=== PATIENT | male | born 1965 ===

== ENCOUNTER 2017-12-30 06:06 | Inpatient (IN) | payer BC ==
[2017-12-23 11:30] VITALS: BMI 29.2
[2017-12-30] MEDS ORDERED: Lactated Ringer's 1,000 ML IV ONE ×3 (06:55→09:00)
[2017-12-30] MEDS ORDERED: ePHEDrine 50 mg/ml Inj ONE (07:06)
[2017-12-30] MEDS ORDERED: Midazolam 2 MG/2 ML VIAL ONE (07:06)
[2017-12-30] MEDS ORDERED: Propofol 10 mg/ml Inj (20 ML) ONE ×2 (07:06→11:33)
[2017-12-30] MEDS ORDERED: Succinylcholine 200 mg/10 ml Inj IV ONE (07:07)
[2017-12-30] MEDS ORDERED: Rocuronium 10 mg/ml (5 ml) ONE ×2 (07:07→08:14)
[2017-12-30] MEDS ORDERED: Phenylephrine 10 mg/ml Inj ONE ×2 (07:07→07:17)
[2017-12-30 07:11] LABS: BASO % 1.2 % (0.0-2.0); EOS # 0.1 K/uL (0.0-0.7); EOS % 2.4 % (0.0-4.0); HEMOGLOBIN 13.3 g/dL (12.0-18.0); LYMPH # 1.2 K/uL (1.0-4.3); LYMPH % 48.8 % (20.0-40.0); MEAN CELL VOLUME 82.5 fl (80.0-94.0); MEAN CORPUSCULAR HEMOGLOBIN 28.7 pg (27.0-31.0); MEAN CORPUSCULAR HGB CONC 34.8 g/dL (33.0-37.0); MEAN PLATELET VOLUME 8.1 fl (7.2-11.7); MONO # 0.3 K/uL (0.0-0.8); MONO % 10.9 % (0.0-10.0); NEUT # 0.9 K/uL (1.8-7.0); NEUT % 36.7 % (50.0-75.0); NRBC % 0.3 % (0.0-0.0); RBC 4.62 Mil/uL (4.40-5.90); RED CELL DISTRIBUTION WIDTH 14.4 % (11.5-14.5); WHITE BLOOD COUNT 2.4 K/uL (4.8-10.8)
[2017-12-30] MEDS ORDERED: Bupivacaine HCl 0.5% PF (30 ml) Inj ONE (07:22)
[2017-12-30] MEDS ORDERED: Esmolol 100 mg/10ml Inj IV ONE (07:43)
[2017-12-30] MEDS ORDERED: Neostigmine 1:1000 (1 mg/ml) Inj ONE (07:47)
[2017-12-30] MEDS ORDERED: Sodium Chloride 0.9% 1,000 ML IV ONE ×2 (07:55→10:00)
[2017-12-30] MEDS ORDERED: cefOXitin IV 1 gm in Dextrose 1 GM/50 ML BAG IVPB ONE (08:07)
[2017-12-30] MEDS ORDERED: Morphine 1 mg/ml preservative-free Inj(Duramorph) ONE (08:14)
--- NOTE | 2017-12-30 12:13 | PCM.SURG1 ---
Surgeon's Initial Post Op Note - Surgeon's Notes Surgeon: Casimiro Putty Worker: Scar AHUMADA, Abena AHUMADA, PGY4, [place] PGY4 Type of Anesthesia: General Endo, Local Pre-Operative Diagnosis: rectosigmoid colon cancer Operative Findings: rectosigmoid colon mass Post-Operative Diagnosis: rectosigmoid colon cancer Operation Performed: Robotic assisted rectosigmoidoscopy, rigid rectosigmoidoscopy, cystoscopy with b/l ureteral dye injection Specimen/Specimens Removed: rectosigmoid colon Estimated Blood Loss: EBL {In ML}: 50 Blood Products Given: N/A Drains Used: No Drains Post-Op Condition: Good Date of Surgery/Procedure: 12/30/17 Time of Surgery/Procedure: 08:00
[2017-12-30] MEDS ORDERED: HYDROmorphone 1 mg/ml ISec ONE ×2 (12:44→13:09)
[2017-12-30] MEDS: HYDROmorphone 1 mg/ml ISec IVP PRN ×5 (12:45→23:09)
--- NOTE | 2017-12-30 14:40 | PCM.OP ---
Operative Report - Operative Report Date of Surgery/Procedure: 12/30/17 Time of Surgery/Procedure: 07:30 Surgeon: Dr. Jorge L Kirkpatrick Chief Underwriter: Dr. Mukesh Abbott and Dr. Kraft Anesthesia/Sedation: general/Dr. Mace Pre-Operative Diagnosis: colon cancer (rectosigmoid colon) Post-Operative Diagnosis: same Indication for Surgery: as above Operative Findings: rectosigmoid colon cancer Procedure/Operation Description: 1-Roboptic low anterior resection of the rectosigmoid colon with takedown of the splenic flexure. 3-Syfp-[id number]. 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 Description of the Procedure: The patient was taken to the operating room and after induction of endotracheal anesthesia he was prepped and drapped in the usual sterile manner. An infraumbilical incision was made and a Mcghee trocar was placed with ease. Pneumoperitoneum was achieved and the colon was examined where no tattoo was noted. Rigis recto-simoidoscopy was perfromed in the usual fashion and the lesion was identified both with the endoscope and through the videoscope. The remainder of the trocars were placed in the usual fashion. The left colon was then mobilized with blunt and sharp dissection with the aid of electrocautery to the level of the splenic flexure. The peritoneal reflection was opened using a similar technique with now the colon completely mobilized. The mesentery was dissected using bkunt and sharp technique. The inferior colic artery was dissected and triple clipped and then transected. The mesenetery was dessicted and the specimen was now completely detached. The colon reached the rectum without any tesnsion. The EEA sizers were used and a 29 mm stapler was introduced in a ahnd assisted fashion, appropriately placed and fired. The douognuts were examined and were completely intact. The anastomosis was filled with air and the anastomosis was deemed adeqaute. Hemostasis was deeemed adeqaute. The umbilical incision was extended and the specimen ws removed. All counts were correct. Trocars were removed and the umbilical incision was closed with 2-0 PDS. $-0 monocryl for the remainder of the trocar sites. A clean dressing was applied. The patient was awakened, extubated and brought to the PACU in stable condition. Estimated Blood Loss: 50 cc Blood Replaced: 2700 cc crystalloids Complications: none Specimen: rectosigmoid colon Discharge & Condition: stable
[2017-12-30] MEDS: cefOXitin IV 1 gm in Dextrose 1 GM/50 ML BAG IVPB SCH ×2 (16:25→21:20)
[2017-12-30] MEDS: Dextrose 5%/0.45% NS 1,000 ML IV SCH (16:28)
--- NOTE | 2017-12-30 21:04 | OP ---
Copied To: Catarino Kraft M.D. Attending MD: Catarino Kraft MD PROCEDURE DATE: 12/30/2017 PREOPERATIVE DIAGNOSIS: Rectal cancer. POSTOPERATIVE DIAGNOSIS: Rectal cancer. PROCEDURES: 1. Cystoscopy. 2. Bilateral retrograde pyelogram with installation of indocyanine green. 3. Exploratory laparoscopy with identification of bilateral ureters. SURGEON: Catarino Kraft MD INDICATION: This is a 52-year-old gentleman undergoing an LAR by the general surgeons. I was asked intraoperatively to come into the operating room to perform cystoscopy and instill retrograde ICG green in to bilateral ureters for identification intraoperatively. In addition, a diagnostic laparoscopy was performed at which time bilateral ureters were identified to aid the general surgeons in identifying their anatomic landmarks. This dictation pertains only to the urology portion of the surgery. The rest of the dictation will be dictated separately by the surgery team. DESCRIPTION OF PROCEDURE: When I came in to the room, the patient was already prepped and draped in the usual sterile fashion. He was already in lithotomy position. A time-out had already been called. At this point, a 19-[place]ayan cystoscope was introduced into the penis. Cystourethroscopy was performed. The urethra appeared grossly normal. The prostatic urethra also appeared grossly normal with slight hypertrophy of the lateral lobes. Once within the bladder, cystoscopy was performed which revealed a normal appearing bladder with no tumors or stones noted. Bilateral ureteral orifices were identified and noted to be in the normal orthotopic position. At this point, a 5-[place] whistle tip catheter was advanced gently into the left ureteral orifice and advanced proximally 15 cm. 5 mL of indocyanine green was then injected in a retrograde fashion into the left renal collecting system. After this was performed, the 5-[place] whistle tip catheter was removed from the left ureter. The right ureter was then identified and the whistle tip catheter was then advanced into the right ureter and advanced approximately 15 cm in distance. An additional 5 mL of indocyanine green was then injected in an retrograde fashion to the right renal collecting system. A 5-[place] open-ended catheter was then removed. The cystoscope was then removed. A 16-[place] Mckinley catheter was then advanced into the penis. The catheter was advanced until spontaneous return of urine was noted. The balloon was then injected with 10 mL of water. The general surgeons then proceeded to perform their part of the surgery. They obtained pneumoperitoneum and placed the trocars. The robot was then docked. With the laparoscope in the abdomen, the Firefly function on the robotic exercise system was turned on. With the aid of the Firefly and indocyanine green, bilateral ureters were easily identifiable as they were fluorescent green. Thus, the bilateral ureters were identified and aided the surgeons in identifying the anatomic landmarks. The rest of the surgery was performed by the general surgeons. They will dictate this separately. Catarino Kraft M.D.
[2017-12-30] MEDS ORDERED: HYDROmorphone 0.5 mg/0.5 ml ISec IVP PRN (23:00)
[2017-12-31] MEDS: Dextrose 5%/0.45% NS 1,000 ML IV SCH ×2 (02:17→09:22)
[2017-12-31] MEDS: cefOXitin IV 1 gm in Dextrose 1 GM/50 ML BAG IVPB SCH ×3 (04:57→17:57)
[2017-12-31] MEDS ORDERED: HYDROmorphone 1 mg/ml ISec IVP PRN ×2 (05:00→07:56)
[2017-12-31 05:29] LABS: HEMOGLOBIN 12.4 g/dL (12.0-18.0); MEAN CELL VOLUME 84.3 fl (80.0-94.0); MEAN CORPUSCULAR HEMOGLOBIN 28.5 pg (27.0-31.0); MEAN CORPUSCULAR HGB CONC 33.8 g/dL (33.0-37.0); RBC 4.35 Mil/uL (4.40-5.90); RED CELL DISTRIBUTION WIDTH 14.8 % (11.5-14.5); WHITE BLOOD COUNT 9.4 K/uL (4.8-10.8)
[2017-12-31 05:57] LABS: ALB/GLOB RATIO 1.2 (1.0-2.1); ALBUMIN 3.8 g/dL (3.5-5.0); ALT/SGPT 25 U/L (21-72); AST/SGOT 31 U/L (17-59); BLOOD UREA NITROGEN 9 mg/dl (9-20); CALCIUM 8.6 mg/dL (8.4-10.2); GFR NON-AFRICAN AMERICAN > 60
[2017-12-31] MEDS: Levothyroxine 75 MCG TAB PO SCH (06:05)
[2017-12-31] MEDS: Enoxaparin 40 mg Syringe SC SCH (08:00)
--- NOTE | 2017-12-31 08:03 | CP.PCM.PN ---
Subjective - Date & Time of Evaluation Date of Evaluation: 12/31/17 Time of Evaluation: 07:20 - Subjective Subjective: General Surgery Dr. Kirkpatrick Pt S&E @bedside. Pt underwent robotic rectosigmoidectomy yesterday. Pt tolerated the procedure well w/ no complications. NAEO. pt c/o abd pain only minimally controlled w/ meds as well as distention. denies F/C, N/V. has not yet been OOB. (-)Flatus/BM. Objective - Vital Signs/Intake and Output Vital Signs (last 24 hours): Temp Pulse Resp BP Pulse Ox 98 F 77 18 119/83 100 12/31/17 07:55 12/31/17 07:55 12/31/17 07:55 12/31/17 07:55 12/31/17 07:55 Intake and Output: 12/31/17 12/31/17 06:59 18:59 Intake Total 1300 1700 Output Total 350 775 Balance 950 925 - Medications Medications: Current Medications Cyclobenzaprine HCl (Flexeril) 5 mg PO TID PRN PRN Reason: Muscle spasm Enoxaparin Sodium (Lovenox) 40 mg SC DAILY [facility] PRN Reason: Protocol Hydromorphone HCl (Dilaudid) 1 mg IVP Q4 PRN PRN Reason: Pain, moderate (4-7) Hydromorphone HCl (Dilaudid) 0.5 mg IVP Q3H PRN PRN Reason: breakthrough pain Acetaminophen (Ofirmev) 1,000 mg in 100 mls @ 400 mls/hr IVPB Q6H [facility] PRN Reason: Protocol Stop: 01/01/18 12:01 Last Admin: 12/31/17 06:00 Dose: 400 mls/hr Dextrose/Sodium Chloride (Dextrose 5%/0.45% Ns 1000 Ml) 1,000 mls @ 125 mls/hr IV .Q8H [facility] Last Admin: 12/31/17 02:17 Dose: 125 mls/hr Cefoxitin Sodium (Mefoxin Iv 1 Gm Duplex) 1 gm in 50 mls @ 50 mls/hr IVPB Q6 [facility] PRN Reason: Protocol Stop: 12/31/17 16:01 Last Admin: 12/31/17 04:57 Dose: 50 mls/hr Levothyroxine Sodium (Synthroid) 75 mcg PO DAILY@0630 [facility] Last Admin: 12/31/17 06:05 Dose: 75 mcg Metoclopramide HCl (Reglan) 10 mg IVP Q8 [facility] Ondansetron HCl (Zofran Inj) 4 mg IVP Q6 PRN PRN Reason: Nausea/Vomiting - Labs Labs: 12/31/17 05:22 12/31/17 05:22 - Constitutional Appears: Non-toxic, No Acute Distress - Head Exam Head Exam: NORMAL INSPECTION - Eye Exam Eye Exam: Normal appearance - ENT Exam ENT Exam: Mucous Membranes Moist - Respiratory Exam Respiratory Exam: NORMAL BREATHING PATTERN. absent: Accessory Muscle Use, Respiratory Distress - Cardiovascular Exam Cardiovascular Exam: REGULAR RHYTHM. absent: Bradycardia, Tachycardia - GI/Abdominal Exam GI & Abdominal Exam: Distended (mild), Guarding (voluntary), Soft, Tenderness ( TTP LLQ). absent: Firm, Rigid, Rebound Additional comments: dressings c/d/i - Extremities Exam Extremities Exam: Normal Inspection - Neurological Exam Neurological Exam: Alert, Awake, Oriented x3 - Psychiatric Exam Psychiatric exam: Normal Affect, Normal Mood - Skin Skin Exam: Dry, Intact, Normal Color, Warm Assessment and Plan - Assessment and Plan (Free Text) Assessment: 52 y/o M w/ colon ca POD#1 s/p robotic rectosigmoidectomy - maintain NPO/IVF - adjusted pain regimen - Reglan for distention/GI motility - Abx to finish today - PT/OT - encourage OOB to chair/Amb/IS use - DVT PPx Pt discussed w/ Dr. Casimiro Goldberg DO PGY3
[2017-12-31] MEDS: HYDROmorphone 1 mg/ml ISec IVP PRN ×2 (09:17→13:36)
[2018-01-01] MEDS: Levothyroxine 75 MCG TAB PO SCH (06:36)
[2018-01-01] MEDS: Dextrose 5%/0.45% NS 1,000 ML IV SCH ×2 (06:36→10:39)
[2018-01-01 07:06] LABS: HEMOGLOBIN 11.9 g/dL (12.0-18.0); MEAN CELL VOLUME 82.7 fl (80.0-94.0); MEAN CORPUSCULAR HEMOGLOBIN 28.5 pg (27.0-31.0); MEAN CORPUSCULAR HGB CONC 34.5 g/dL (33.0-37.0); RBC 4.16 Mil/uL (4.40-5.90); RED CELL DISTRIBUTION WIDTH 14.8 % (11.5-14.5); WHITE BLOOD COUNT 8.8 K/uL (4.8-10.8)
[2018-01-01 07:14] LABS: BLOOD UREA NITROGEN 7 mg/dl (9-20); GFR NON-AFRICAN AMERICAN > 60
--- NOTE | 2018-01-01 08:13 | CP.PCM.PN ---
Subjective - Date & Time of Evaluation Date of Evaluation: 01/01/18 Time of Evaluation: 08:09 - Subjective Subjective: General surgery - Dr. Kirkpatrick Pt S&E. Overnight pt had episodes of nausea. His pain is well controlled with current regimen. He has been OOB and ambulating. He is passing small amount of flatus and belching. He denies any vomiting, fevers/chills, chest pain. Mckinley catheter had ~2000cc blood-tinged urine output past 24hrs. Objective - Vital Signs/Intake and Output Vital Signs (last 24 hours): Temp Pulse Resp BP Pulse Ox 98.5 F 77 18 135/71 97 01/01/18 05:00 01/01/18 05:00 01/01/18 05:00 01/01/18 05:00 01/01/18 05:00 - Medications Medications: Current Medications Cyclobenzaprine HCl (Flexeril) 5 mg PO TID PRN PRN Reason: Muscle spasm Last Admin: 12/31/17 07:58 Dose: 5 mg Enoxaparin Sodium (Lovenox) 40 mg SC DAILY [facility] PRN Reason: Protocol Last Admin: 12/31/17 08:00 Dose: 40 mg Acetaminophen (Ofirmev) 1,000 mg in 100 mls @ 400 mls/hr IVPB Q6H [facility] PRN Reason: Protocol Stop: 01/01/18 12:01 Last Admin: 01/01/18 06:34 Dose: 400 mls/hr Dextrose/Sodium Chloride (Dextrose 5%/0.45% Ns 1000 Ml) 1,000 mls @ 125 mls/hr IV .Q8H [facility] Last Admin: 01/01/18 06:36 Dose: 125 mls/hr Ketorolac Tromethamine (Toradol) 30 mg IVP Q6 [facility] Last Admin: 01/01/18 03:19 Dose: 30 mg Levothyroxine Sodium (Synthroid) 75 mcg PO DAILY@0630 [facility] Last Admin: 01/01/18 06:36 Dose: 75 mcg Metoclopramide HCl (Reglan) 10 mg IVP Q8 [facility] Last Admin: 01/01/18 01:54 Dose: 10 mg Ondansetron HCl (Zofran Inj) 4 mg IVP Q4 [facility] Last Admin: 01/01/18 07:31 Dose: 4 mg - Labs Labs: 01/01/18 06:21 01/01/18 06:21 - Constitutional Appears: No Acute Distress - Head Exam Head Exam: ATRAUMATIC, NORMAL INSPECTION, NORMOCEPHALIC - Respiratory Exam Respiratory Exam: NORMAL BREATHING PATTERN. absent: Respiratory Distress - Cardiovascular Exam Cardiovascular Exam: REGULAR RHYTHM - GI/Abdominal Exam GI & Abdominal Exam: Distended, Soft. absent: Firm, Guarding, Rigid, Tenderness , Rebound Additional comments: incisions c/d/i with dermabond - Neurological Exam Neurological Exam: Alert, Oriented x3 - Psychiatric Exam Psychiatric exam: Normal Affect, Normal Mood - Skin Skin Exam: Dry, Intact Assessment and Plan - Assessment and Plan (Free Text) Assessment: 52M w/ Colon ca POD#2 s/p robotic rectosigmoidectomy - Maintain NPO/IVF - Continue Reglan - Pain control prn - Encourage OOB, Ambulation, and Incentive Spirometer - DVT PPx DW Dr Casimiro Funes PGy4
[2018-01-01] MEDS: Enoxaparin 40 mg Syringe SC SCH (08:21)
[2018-01-01] MEDS ORDERED: Potassium Phosphate 30 MMOLE in Sodium Chloride 0.9% 250 ML IV ONE (08:51)
[2018-01-02 05:58] LABS: BLOOD UREA NITROGEN 10 mg/dl (9-20); CALCIUM 9.4 mg/dL (8.4-10.2); GFR NON-AFRICAN AMERICAN > 60
[2018-01-02] MEDS: Dextrose 5%/0.45% NS 1,000 ML IV SCH ×3 (06:01→20:00)
[2018-01-02] MEDS: Levothyroxine 75 MCG TAB PO SCH (06:24)
--- NOTE | 2018-01-02 08:21 | CP.PCM.PN ---
Subjective - Date & Time of Evaluation Date of Evaluation: 01/02/18 Time of Evaluation: 08:20 - Subjective Subjective: General Surgery Dr. Kirkpatrick Pt S&E @bedside. Pt and nursing report bilious vomiting overnight. pain well controlled. decreasing flatus w/ no new BM. urinating w/o difficulty. Objective - Vital Signs/Intake and Output Vital Signs (last 24 hours): Temp Pulse Resp BP Pulse Ox 98.5 F 77 12 126/76 97 01/02/18 06:52 01/02/18 06:52 01/02/18 06:52 01/02/18 06:52 01/02/18 06:52 Intake and Output: 01/02/18 01/02/18 06:59 18:59 Intake Total 1500 Output Total 900 Balance 600 - Medications Medications: Current Medications Cyclobenzaprine HCl (Flexeril) 5 mg PO TID PRN PRN Reason: Muscle spasm Last Admin: 12/31/17 07:58 Dose: 5 mg Enoxaparin Sodium (Lovenox) 40 mg SC DAILY [facility] PRN Reason: Protocol Last Admin: 01/01/18 08:21 Dose: 40 mg Dextrose/Sodium Chloride (Dextrose 5%/0.45% Ns 1000 Ml) 1,000 mls @ 125 mls/hr IV .Q8H [facility] Last Admin: 01/02/18 06:01 Dose: 125 mls/hr Ketorolac Tromethamine (Toradol) 30 mg IVP Q6 [facility] Last Admin: 01/02/18 04:31 Dose: 30 mg Levothyroxine Sodium (Synthroid) 75 mcg PO DAILY@0630 [facility] Last Admin: 01/02/18 06:24 Dose: 75 mcg Metoclopramide HCl (Reglan) 10 mg IVP Q8 [facility] Last Admin: 01/02/18 00:02 Dose: Not Given Ondansetron HCl (Zofran Inj) 4 mg IVP Q4 PRN PRN Reason: Nausea/Vomiting Last Admin: 01/02/18 02:34 Dose: 4 mg Pantoprazole Sodium (Protonix Inj) 40 mg IVP DAILY [facility] - Labs Labs: 01/01/18 06:21 01/02/18 04:45 - Constitutional Appears: Non-toxic, No Acute Distress - Head Exam Head Exam: NORMAL INSPECTION - Eye Exam Eye Exam: Normal appearance - ENT Exam ENT Exam: Mucous Membranes Moist - Respiratory Exam Respiratory Exam: NORMAL BREATHING PATTERN. absent: Accessory Muscle Use, Respiratory Distress - Cardiovascular Exam Cardiovascular Exam: REGULAR RHYTHM. absent: Bradycardia, Tachycardia - GI/Abdominal Exam GI & Abdominal Exam: Distended (mild-moderate), Soft, Tenderness (appropriate TTP LLQ). absent: Firm, Guarding, Rigid Additional comments: incisions c/d/i - Extremities Exam Extremities Exam: Normal Inspection - Neurological Exam Neurological Exam: Alert, Awake, Oriented x3 - Psychiatric Exam Psychiatric exam: Normal Affect, Normal Mood - Skin Skin Exam: Dry, Intact, Normal Color, Warm Assessment and Plan - Assessment and Plan (Free Text) Assessment: 52 y/o M w/ Colon ca POD#3 s/p robotic rectosigmoidectomy - cont NPO/IVF - Reglan [facility] - pain management - PPI - encourage OOB to chair/Amb/IS use - DVT PPx Pt discussed w/ Dr. Casimiro Goldberg DO PGY3
[2018-01-02] MEDS: Enoxaparin 40 mg Syringe SC SCH (09:31)
[2018-01-03] MEDS: Dextrose 5%/0.45% NS 1,000 ML IV SCH ×3 (05:01→21:02)
[2018-01-03] MEDS: Levothyroxine 75 MCG TAB PO SCH (07:34)
--- NOTE | 2018-01-03 08:06 | CP.PCM.PN ---
Subjective - Date & Time of Evaluation Date of Evaluation: 01/03/18 Time of Evaluation: 08:04 - Subjective Subjective: General surgery progress note for Dr. Matt Kenney, PGY-2 Pt S & E at bedside at 0705 Pt reports N & V x 2 over last 24 Hrs. Notes that there is dark blood coming from umbilical incision site. Admits to flatus x 1. Is getting OOBTC, ambulating. Denies F & C. BM. Objective - Vital Signs/Intake and Output Vital Signs (last 24 hours): Temp Pulse Resp BP Pulse Ox 98.5 F 67 17 133/80 99 01/03/18 01:00 01/03/18 01:00 01/03/18 01:00 01/03/18 01:00 01/03/18 01:00 - Medications Medications: Current Medications Cyclobenzaprine HCl (Flexeril) 5 mg PO TID PRN PRN Reason: Muscle spasm Last Admin: 12/31/17 07:58 Dose: 5 mg Enoxaparin Sodium (Lovenox) 40 mg SC DAILY [facility] PRN Reason: Protocol Last Admin: 01/02/18 09:31 Dose: 40 mg Dextrose/Sodium Chloride (Dextrose 5%/0.45% Ns 1000 Ml) 1,000 mls @ 125 mls/hr IV .Q8H [facility] Last Admin: 01/03/18 05:01 Dose: 125 mls/hr Ketorolac Tromethamine (Toradol) 30 mg IVP Q6 [facility] Last Admin: 01/03/18 04:30 Dose: Not Given Levothyroxine Sodium (Synthroid) 75 mcg PO DAILY@0630 [facility] Last Admin: 01/03/18 07:34 Dose: 75 mcg Metoclopramide HCl (Reglan) 10 mg IVP Q8 [facility] Last Admin: 01/03/18 01:09 Dose: 10 mg Ondansetron HCl (Zofran Inj) 4 mg IVP Q4 PRN PRN Reason: Nausea/Vomiting Last Admin: 01/02/18 02:34 Dose: 4 mg Pantoprazole Sodium (Protonix Inj) 40 mg IVP DAILY [facility] Last Admin: 01/02/18 09:35 Dose: 40 mg - Labs Labs: 01/01/18 06:21 01/02/18 04:45 - Constitutional Appears: Non-toxic, No Acute Distress - Head Exam Head Exam: ATRAUMATIC, NORMAL INSPECTION, NORMOCEPHALIC - Eye Exam Eye Exam: EOMI, Normal appearance - ENT Exam ENT Exam: Mucous Membranes Moist, Normal Exam - Neck Exam Neck Exam: Full ROM, Normal Inspection - Respiratory Exam Respiratory Exam: NORMAL BREATHING PATTERN - Cardiovascular Exam Cardiovascular Exam: REGULAR RHYTHM, +S1, +S2 - GI/Abdominal Exam GI & Abdominal Exam: Soft, Tenderness (Periumbilical site). absent: Distended, Firm, Guarding Additional comments: Umbilical incision site with slight erythema, able to express liquified blood from incision site, slightly tender to palpation. - Extremities Exam Extremities Exam: Normal Inspection - Neurological Exam Neurological Exam: Alert, Awake, CN II-XII Intact, Oriented x3 - Psychiatric Exam Psychiatric exam: Normal Affect, Normal Mood - Skin Skin Exam: Dry, Warm. absent: Intact, Normal Color Assessment and Plan - Assessment and Plan (Free Text) Assessment: 52M w/colon CA POD#4 s/p robotic rectosigmoidectomy Plan: CLD sips Cont IVF Anti-emetic OLI Cont Pain control Cont PPT OOBTC Ambulate Encourage IS use Monitor VS DVT ppx Will DW Dr. Casimiro Kenney, PGY-2
[2018-01-03] MEDS ORDERED: Povidone Iodine Topical 10% Sol ONE (08:25)
[2018-01-03] MEDS ORDERED: Hydrogen Peroxide 3% Soln (480ml) TP ONE (08:27)
[2018-01-03 09:21] LABS: MEAN CELL VOLUME 83.2 fl (80.0-94.0); MEAN CORPUSCULAR HEMOGLOBIN 28.2 pg (27.0-31.0); RBC 3.88 Mil/uL (4.40-5.90); RED CELL DISTRIBUTION WIDTH 14.7 % (11.5-14.5); WHITE BLOOD COUNT 4.7 K/uL (4.8-10.8)
[2018-01-03 09:35] LABS: BLOOD UREA NITROGEN 13 mg/dl (9-20); CALCIUM 9.4 mg/dL (8.4-10.2); GFR NON-AFRICAN AMERICAN > 60
[2018-01-03] MEDS: ceFAZolin IV 2 gm in Dextrose 2 GM/50 ML BAG IVPB SCH ×2 (09:46→21:05)
[2018-01-03] MEDS: Enoxaparin 40 mg Syringe SC SCH (09:47)
[2018-01-04] MEDS: Dextrose 5%/0.45% NS 1,000 ML IV SCH ×4 (05:23→21:10)
[2018-01-04] MEDS: Levothyroxine 75 MCG TAB PO SCH (06:25)
--- NOTE | 2018-01-04 08:23 | CP.PCM.PN ---
Subjective - Date & Time of Evaluation Date of Evaluation: 01/04/18 Time of Evaluation: 07:10 - Subjective Subjective: General Surgery Pt seen and examined. Afebrile. No recent flatus or BM. Ambulating. Had 1100cc bilious emesis at midnight, now feeling return of nausea this AM. Minimal old blood draining from umbilical incision. No other complaints. Objective - Vital Signs/Intake and Output Vital Signs (last 24 hours): Temp Pulse Resp BP Pulse Ox 98.1 F 76 20 138/70 96 01/03/18 23:58 01/03/18 23:58 01/03/18 23:58 01/03/18 23:58 01/03/18 23:58 Intake and Output: 01/04/18 01/04/18 06:59 18:59 Intake Total 1500 Output Total 1150 Balance 350 - Medications Medications: Current Medications Acetaminophen (Tylenol 325mg Tab) 650 mg PO Q4 PRN PRN Reason: Pain, Mild (1-3) Enoxaparin Sodium (Lovenox) 40 mg SC DAILY [facility] PRN Reason: Protocol Last Admin: 01/03/18 09:47 Dose: 40 mg Dextrose/Sodium Chloride (Dextrose 5%/0.45% Ns 1000 Ml) 1,000 mls @ 125 mls/hr IV .Q8H [facility] Last Admin: 01/04/18 05:23 Dose: Not Given Cefazolin Sodium/Dextrose (Ancef Iv 2 Gm Duplex) 2 gm in 50 mls @ 50 mls/hr IVPB Q12 [facility] PRN Reason: Protocol Last Admin: 01/03/18 21:05 Dose: 50 mls/hr Ibuprofen (Motrin Tab) 600 mg PO Q6 PRN PRN Reason: Pain, moderate (4-7) Last Admin: 01/03/18 20:57 Dose: 600 mg Levothyroxine Sodium (Synthroid) 75 mcg PO DAILY@0630 [facility] Last Admin: 01/04/18 06:25 Dose: Not Given Metoclopramide HCl (Reglan) 10 mg IVP Q8 [facility] Last Admin: 01/04/18 01:01 Dose: 10 mg Ondansetron HCl (Zofran Inj) 4 mg IVP Q4 PRN PRN Reason: Nausea/Vomiting Last Admin: 01/04/18 05:17 Dose: 4 mg Pantoprazole Sodium (Protonix Inj) 40 mg IVP DAILY [facility] Last Admin: 01/03/18 09:47 Dose: 40 mg - Labs Labs: 01/03/18 09:10 01/03/18 09:10 - Constitutional Appears: Non-toxic, No Acute Distress - Head Exam Head Exam: ATRAUMATIC, NORMOCEPHALIC - Eye Exam Eye Exam: EOMI. absent: Scleral icterus - Respiratory Exam Respiratory Exam: NORMAL BREATHING PATTERN. absent: Respiratory Distress - Cardiovascular Exam Cardiovascular Exam: RRR, +S1, +S2 - GI/Abdominal Exam GI & Abdominal Exam: Distended (mild), Soft, Tenderness (minimal at incision, most at umbilical incision.). absent: Firm, Guarding, Rigid, Rebound Additional comments: umbilical incision with some dark blood drainage, from L aspect port sites C/D/I - Extremities Exam Extremities Exam: Normal Capillary Refill. absent: Calf Tenderness, Pedal Edema - Neurological Exam Neurological Exam: Alert, Awake, Oriented x3 - Skin Skin Exam: Dry, Warm Assessment and Plan - Assessment and Plan (Free Text) Assessment: 52M w/colon CA POD#5 s/p robotic rectosigmoidectomy now with post op ileus. Plan: NPO IV fluids, meds pain control PRN antiemetic and prokinetic ordered Encourage IS use and ambulation Possible placement of NGT if emesis continues D/W Dr. Casimiro Underwood PGY4
[2018-01-04] MEDS: ceFAZolin IV 2 gm in Dextrose 2 GM/50 ML BAG IVPB SCH (08:43)
[2018-01-04] MEDS: Enoxaparin 40 mg Syringe SC SCH (08:44)
--- NOTE | 2018-01-04 09:10 | PQF ---
PROVIDER RESPONSE TEXT: Post operative ileus is an expected complication in bowel resection surgeries. REVIEWER QUERY TEXT: Postoperative Relationship Clarification Please clarify the term ?post operative? related to the documented condition in the Medical Record Such as: -- Condition is a complication of surgery -- Condition occurred in the post operative period, cause documented (please specify cause) -- Condition occurred in the post operative period, cause clinically unable to be determined -- Condition is incidental to surgery -- Other, please specify Documentation indicators that raised basis for question: 12/30/17: S/P robotic rectosigmoidectomy, cystoscopy, bilateral retrograde pyelogram with installatio n of indocyanine green, exploratory laparoscopy with identification of bilateral ureters. 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 + emesis, nausea. Now with postop il eus. Query created by: Miroslava Garcia on 01/04/2018 8:56 AM Electronically signed by: Bryan Underwood 01/04/2018 9:07 AM
[2018-01-04] MEDS ORDERED: Chlorhexidine Gluconate 1 APPL/PKT TP ONE (09:20)
[2018-01-04] MEDS: ceFAZolin 2 GM in Sodium Chloride 0.9% 100 ML IVPB SCH (21:08)
[2018-01-05] MEDS: Dextrose 5%/0.45% NS 1,000 ML IV SCH (05:49)
[2018-01-05] MEDS: Levothyroxine 75 MCG TAB PO SCH ×2 (05:50→07:48)
[2018-01-05 06:58] LABS: BLOOD UREA NITROGEN 13 mg/dl (9-20); CALCIUM 9.1 mg/dL (8.4-10.2); GFR NON-AFRICAN AMERICAN > 60
[2018-01-05] MEDS: ceFAZolin 2 GM in Sodium Chloride 0.9% 100 ML IVPB SCH ×2 (09:23→21:13)
[2018-01-05] MEDS: Enoxaparin 40 mg Syringe SC SCH (09:24)
--- NOTE | 2018-01-05 11:14 | CP.PCM.PN ---
Subjective - Date & Time of Evaluation Date of Evaluation: 01/05/18 Time of Evaluation: 10:20 - Subjective Subjective: General Surgery Pt seen and examined, no new issues overnight. Has some back pain that was keeping him up overnight. Still with bilious output from NGT, No BM/flatus. Denies fever, chills, nausea, emesis. Objective - Vital Signs/Intake and Output Vital Signs (last 24 hours): Temp Pulse Resp BP Pulse Ox 97.8 F 68 20 134/78 98 01/05/18 08:37 01/05/18 08:37 01/05/18 08:37 01/05/18 08:37 01/05/18 08:37 Intake and Output: 01/05/18 01/05/18 06:59 18:59 Output Total 4250 Balance -4250 - Medications Medications: Current Medications Acetaminophen (Tylenol 325mg Tab) 650 mg PO Q4 PRN PRN Reason: Pain, Mild (1-3) Enoxaparin Sodium (Lovenox) 40 mg SC DAILY [facility] PRN Reason: Protocol Last Admin: 01/05/18 09:24 Dose: 40 mg Dextrose/Sodium Chloride (Dextrose 5%/0.45% Ns 1000 Ml) 1,000 mls @ 125 mls/hr IV .Q8H [facility] Last Admin: 01/05/18 05:49 Dose: Not Given Cefazolin Sodium 2 gm/ Sodium (Chloride) 100 mls @ 100 mls/hr IVPB Q12 [facility] PRN Reason: Protocol Last Admin: 01/05/18 09:23 Dose: 100 mls/hr Potassium Chloride/Dextrose/Sod Cl (Potassium Chl 20 Meq In D5-1/2ns) 1,000 mls @ 125 mls/hr IV .Q8H [facility] Stop: 01/06/18 10:08 Ibuprofen (Motrin Tab) 600 mg PO Q6 PRN PRN Reason: Pain, moderate (4-7) Last Admin: 01/03/18 20:57 Dose: 600 mg Levothyroxine Sodium (Synthroid) 75 mcg PO DAILY@0630 [facility] Last Admin: 01/05/18 07:48 Dose: 75 mcg Metoclopramide HCl (Reglan) 10 mg IVP Q8 [facility] Last Admin: 01/05/18 09:24 Dose: 10 mg Ondansetron HCl (Zofran Inj) 4 mg IVP Q4 PRN PRN Reason: Nausea/Vomiting Last Admin: 01/04/18 05:17 Dose: 4 mg Pantoprazole Sodium (Protonix Inj) 40 mg IVP DAILY [facility] Last Admin: 01/05/18 09:24 Dose: 40 mg - Labs Labs: 01/03/18 09:10 01/05/18 05:40 - Constitutional Appears: Non-toxic, No Acute Distress - Head Exam Head Exam: ATRAUMATIC, NORMOCEPHALIC - Eye Exam Eye Exam: EOMI. absent: Scleral icterus - Respiratory Exam Respiratory Exam: NORMAL BREATHING PATTERN. absent: Respiratory Distress - Cardiovascular Exam Cardiovascular Exam: JVD, +S1, +S2 - GI/Abdominal Exam GI & Abdominal Exam: Soft, Tenderness (mild at umbilical incision). absent: Distended, Firm, Guarding, Rigid, Rebound Additional comments: Laparoscopic incisions C/D/I Umbilical incision with trace old blood expressed. Assessment and Plan - Assessment and Plan (Free Text) Assessment: 52M w/colon CA POD#6 s/p robotic rectosigmoidectomy now with post op ileus. Plan: Cont NPO Cont NGT, monitor output IV fluids, meds Replete electrolytes PRN Pain control PRN Continue antiemetic and prokinetic Dulcolax suppository ordered Encourage IS use and ambulation D/W Dr. Casimiro Underwood PGY4
[2018-01-05] MEDS: Potassium Ch 20mEq in D5-1/2NS 1,000 ML IV SCH ×2 (13:08→22:22)
[2018-01-06] MEDS: Potassium Ch 20mEq in D5-1/2NS 1,000 ML IV SCH (07:00)
[2018-01-06] MEDS: Levothyroxine 75 MCG TAB PO SCH (07:00)
[2018-01-06 07:07] LABS: BLOOD UREA NITROGEN 11 mg/dl (9-20); CALCIUM 8.8 mg/dL (8.4-10.2); GFR NON-AFRICAN AMERICAN > 60
--- NOTE | 2018-01-06 08:59 | CP.PCM.PN ---
Subjective - Date & Time of Evaluation Date of Evaluation: 01/06/18 Time of Evaluation: 07:00 - Subjective Subjective: General surgery Dr. Kirkpatrick Pt S&E @bedside. Pt had multiple BMs yesterday. NGT clamped x5hrs, w/ 100cc out immediately. 950cc total output overnight. NAEO. pt has no complaints. pain and distention improving slowly. denies F/C, N/V, D/C. NPO. Objective - Vital Signs/Intake and Output Vital Signs (last 24 hours): Temp Pulse Resp BP Pulse Ox 98.1 F 73 20 132/75 94 L 01/06/18 08:28 01/06/18 08:28 01/06/18 08:28 01/06/18 08:28 01/06/18 08:28 Intake and Output: 01/06/18 01/06/18 06:59 18:59 Intake Total 1600 Output Total 950 Balance 650 - Medications Medications: Current Medications Acetaminophen (Tylenol 325mg Tab) 650 mg PO Q4 PRN PRN Reason: Pain, Mild (1-3) Enoxaparin Sodium (Lovenox) 40 mg SC DAILY [facility]LI PRN Reason: Protocol Last Admin: 01/05/18 09:24 Dose: 40 mg Hydromorphone HCl (Dilaudid) 0.25 mg IVP Q4 PRN PRN Reason: Pain, moderate (4-7) Last Admin: 01/05/18 22:19 Dose: 0.25 mg Cefazolin Sodium 2 gm/ Sodium (Chloride) 100 mls @ 100 mls/hr IVPB Q12 [facility] PRN Reason: Protocol Last Admin: 01/05/18 21:13 Dose: 100 mls/hr Potassium Chloride/Dextrose/Sod Cl (Potassium Chl 20 Meq In D5-1/2ns) 1,000 mls @ 125 mls/hr IV .Q8H [facility] Stop: 01/06/18 10:08 Last Admin: 01/06/18 07:00 Dose: 125 mls/hr Potassium Chloride (Potassium Cl 10meq/50ml Sterile Water) 50 mls @ 50 mls/hr IVPB Q1 [facility] Stop: 01/06/18 12:59 Ibuprofen (Motrin Tab) 600 mg PO Q6 PRN PRN Reason: Pain, moderate (4-7) Last Admin: 01/03/18 20:57 Dose: 600 mg Levothyroxine Sodium (Synthroid) 75 mcg PO DAILY@0630 [facility] Last Admin: 01/06/18 07:00 Dose: 75 mcg Metoclopramide HCl (Reglan) 10 mg IVP Q8 [facility] Last Admin: 01/06/18 01:13 Dose: 10 mg Ondansetron HCl (Zofran Inj) 4 mg IVP Q4 PRN PRN Reason: Nausea/Vomiting Last Admin: 01/04/18 05:17 Dose: 4 mg Pantoprazole Sodium (Protonix Inj) 40 mg IVP DAILY [facility] Last Admin: 01/05/18 09:24 Dose: 40 mg - Labs Labs: 01/03/18 09:10 01/06/18 05:40 - Constitutional Appears: Non-toxic, No Acute Distress - Head Exam Head Exam: NORMAL INSPECTION - Eye Exam Eye Exam: Normal appearance - ENT Exam ENT Exam: Mucous Membranes Moist - Respiratory Exam Respiratory Exam: NORMAL BREATHING PATTERN. absent: Accessory Muscle Use, Respiratory Distress - Cardiovascular Exam Cardiovascular Exam: REGULAR RHYTHM. absent: Bradycardia, Tachycardia - GI/Abdominal Exam GI & Abdominal Exam: Distended (mild-moderate), Soft, Tenderness (mild bjorn- incisional TTP). absent: Firm, Guarding, Rigid Additional comments: lateral incisions c/d/i umbilical incision w/ scant bloody drainage. - Extremities Exam Extremities Exam: Normal Inspection - Neurological Exam Neurological Exam: Alert, Awake, Oriented x3 - Psychiatric Exam Psychiatric exam: Normal Affect, Normal Mood - Skin Skin Exam: Dry, Intact, Normal Color, Warm Assessment and Plan - Assessment and Plan (Free Text) Assessment: 52M w/ colon CA POD#7 s/p robotic rectosigmoidectomy now with post op ileus. - NPO/IVF - 4hr NGT clamp trial - Replete electrolytes PRN - cont pain management - cont antiemetic and prokinetic - monitor bowel fxn - Encourage OOB to chair/Amb/IS IS Pt discussed w/ Dr. Casimiro Goldberg DO PGY3
[2018-01-06] MEDS: ceFAZolin 2 GM in Sodium Chloride 0.9% 100 ML IVPB SCH ×2 (09:14→21:16)
[2018-01-06] MEDS: Enoxaparin 40 mg Syringe SC SCH (09:15)
[2018-01-06] MEDS: Potassium CL 10 MEQ/50 ML 50 ML IVPB SCH ×4 (11:22→14:49)
[2018-01-07] MEDS: Levothyroxine 75 MCG TAB PO SCH (07:22)
[2018-01-07] MEDS: ceFAZolin 2 GM in Sodium Chloride 0.9% 100 ML IVPB SCH ×2 (08:34→20:57)
[2018-01-07] MEDS ORDERED: Povidone Iodine Topical 10% Sol TOP ONE (08:37)
[2018-01-07] MEDS: Enoxaparin 40 mg Syringe SC SCH (08:38)
--- NOTE | 2018-01-07 08:48 | CP.PCM.PN ---
Subjective - Date & Time of Evaluation Date of Evaluation: 01/07/18 Time of Evaluation: 06:50 - Subjective Subjective: General surgery Pt seen and examined. +BMs. NAEO. Complaining of nausea and abdominal pain from "feeling his intestines moving." Denies F/C, N/V, D/C. Tolerating liquids. Objective - Vital Signs/Intake and Output Vital Signs (last 24 hours): Temp Pulse Resp BP Pulse Ox 98.3 F 64 19 133/83 97 01/07/18 07:57 01/07/18 07:57 01/07/18 07:57 01/07/18 07:57 01/07/18 07:57 Intake and Output: 01/07/18 01/07/18 06:59 18:59 Intake Total 1160 Balance 1160 - Medications Medications: Current Medications Acetaminophen (Tylenol 325mg Tab) 975 mg PO Q8 [facility] Enoxaparin Sodium (Lovenox) 40 mg SC DAILY OLI PRN Reason: Protocol Last Admin: 01/07/18 08:38 Dose: 40 mg Hydromorphone HCl (Dilaudid) 0.25 mg IVP Q4 PRN PRN Reason: Pain, moderate (4-7) Last Admin: 01/07/18 05:25 Dose: 0.25 mg Cefazolin Sodium 2 gm/ Sodium (Chloride) 100 mls @ 100 mls/hr IVPB Q12 [facility] PRN Reason: Protocol Last Admin: 01/07/18 08:34 Dose: 100 mls/hr Dextrose/Sodium Chloride (Dextrose 5%-0.45% Ns 500 Ml) 500 mls @ 80 mls/hr IV .Q6H15M [facility] Stop: 01/07/18 18:32 Last Admin: 01/07/18 08:16 Dose: Not Given Ibuprofen (Motrin Tab) 600 mg PO Q6 PRN PRN Reason: Pain, moderate (4-7) Last Admin: 01/03/18 20:57 Dose: 600 mg Levothyroxine Sodium (Synthroid) 75 mcg PO DAILY@0630 [facility] Last Admin: 01/07/18 07:22 Dose: 75 mcg Metoclopramide HCl (Reglan) 10 mg IVP Q8 [facility] Last Admin: 01/07/18 08:38 Dose: 10 mg Ondansetron HCl (Zofran Inj) 4 mg IVP Q4 PRN PRN Reason: Nausea/Vomiting Last Admin: 01/07/18 05:31 Dose: 4 mg Pantoprazole Sodium (Protonix Inj) 40 mg IVP DAILY [facility] Last Admin: 01/06/18 09:15 Dose: 40 mg - Labs Labs: 01/03/18 09:10 01/06/18 05:40 - Constitutional Appears: Non-toxic, No Acute Distress - Head Exam Head Exam: ATRAUMATIC, NORMOCEPHALIC - Eye Exam Eye Exam: EOMI. absent: Scleral icterus - Respiratory Exam Respiratory Exam: NORMAL BREATHING PATTERN. absent: Respiratory Distress - Cardiovascular Exam Cardiovascular Exam: RRR, +S1, +S2 - GI/Abdominal Exam GI & Abdominal Exam: Soft, Tenderness (mild at L lateral umbilical incision). absent: Distended, Firm, Guarding, Rigid, Rebound Additional comments: Umbilical incision with 3cc turbid bloody fluid expressed from L lateral edge Other incisions healing well, C/D/I - Extremities Exam Extremities Exam: Normal Capillary Refill. absent: Calf Tenderness, Pedal Edema - Back Exam Back Exam: absent: CVA tenderness (L), CVA tenderness (R) - Neurological Exam Neurological Exam: Alert, Awake, Oriented x3 - Skin Skin Exam: Dry, Warm Assessment and Plan - Assessment and Plan (Free Text) Assessment: 52M w/ colon CA POD#8 s/p robotic rectosigmoidectomy now with improved post op ileus. Plan: - Advance to soft diet, monitor for tolerance - Replete electrolytes PRN - cont pain management, added OLI tylenol - cont antiemetic and prokinetic - monitor bowel fxn - Encourage OOB to chair/Amb/IS IS - Dressing changes PRN D/W Dr. Casimiro Underwood PGY4
[2018-01-07] MEDS ORDERED: Dextrose 5%/0.45% NS 1,000 ML IV SCH (10:00)
[2018-01-07 10:07] LABS: BLOOD UREA NITROGEN 12 mg/dl (9-20); CALCIUM 9.4 mg/dL (8.4-10.2); GFR NON-AFRICAN AMERICAN > 60
[2018-01-08] MEDS ORDERED: Magnesium Hydroxide Susp 30 ml UD PO ONE (02:17)
[2018-01-08] MEDS: Levothyroxine 75 MCG TAB PO SCH (06:59)
[2018-01-08] MEDS ORDERED: Iohexol 240 (50 ml) PO ONE (08:08)
--- NOTE | 2018-01-08 08:51 | CP.PCM.PN ---
Subjective - Date & Time of Evaluation Date of Evaluation: 01/08/18 Time of Evaluation: 06:50 - Subjective Subjective: General surgery Pt seen and examined. Scant mucoid BMs. Had 1L bilious emesis overnight, feeling more distended now. Pain controlled with meds. Denies F/C. Objective - Vital Signs/Intake and Output Vital Signs (last 24 hours): Temp Pulse Resp BP Pulse Ox 98.4 F 70 20 163/77 H 97 01/08/18 00:01 01/08/18 00:01 01/08/18 00:01 01/08/18 00:01 01/08/18 00:01 - Medications Medications: Current Medications Acetaminophen (Tylenol 325mg Tab) 975 mg PO Q8 [facility] Last Admin: 01/08/18 01:40 Dose: Not Given Enoxaparin Sodium (Lovenox) 40 mg SC DAILY [facility] PRN Reason: Protocol Last Admin: 01/07/18 08:38 Dose: 40 mg Hydromorphone HCl (Dilaudid) 0.25 mg IVP Q4 PRN PRN Reason: Pain, moderate (4-7) Last Admin: 01/08/18 04:32 Dose: 0.25 mg Cefazolin Sodium 2 gm/ Sodium (Chloride) 100 mls @ 100 mls/hr IVPB Q12 [facility] PRN Reason: Protocol Last Admin: 01/07/18 20:57 Dose: 100 mls/hr Ibuprofen (Motrin Tab) 600 mg PO Q6 PRN PRN Reason: Pain, moderate (4-7) Last Admin: 01/03/18 20:57 Dose: 600 mg Levothyroxine Sodium (Synthroid) 75 mcg PO DAILY@0630 [facility] Last Admin: 01/08/18 06:59 Dose: Not Given Metoclopramide HCl (Reglan) 10 mg IVP Q8 [facility] Last Admin: 01/08/18 01:36 Dose: 10 mg Ondansetron HCl (Zofran Inj) 4 mg IVP Q4 PRN PRN Reason: Nausea/Vomiting Last Admin: 01/07/18 11:11 Dose: 4 mg Pantoprazole Sodium (Protonix Inj) 40 mg IVP DAILY [facility] Last Admin: 01/07/18 09:06 Dose: 40 mg - Labs Labs: 01/03/18 09:10 01/07/18 09:47 - Constitutional Appears: Non-toxic, No Acute Distress - Head Exam Head Exam: ATRAUMATIC, NORMOCEPHALIC - Eye Exam Eye Exam: EOMI. absent: Scleral icterus - Respiratory Exam Respiratory Exam: NORMAL BREATHING PATTERN. absent: Respiratory Distress - Cardiovascular Exam Cardiovascular Exam: RRR, +S1 - GI/Abdominal Exam GI & Abdominal Exam: Distended, Soft, Tenderness (mild at umbilical incision). absent: Firm, Guarding, Rigid, Rebound Additional comments: umbilical incision with small amount of purulent drainage, packing placed to keep open - Extremities Exam Extremities Exam: Normal Capillary Refill. absent: Calf Tenderness, Pedal Edema - Neurological Exam Neurological Exam: Alert, Awake, Oriented x3 - Skin Skin Exam: Dry, Warm Assessment and Plan - Assessment and Plan (Free Text) Assessment: 52M w/ colon CA POD#9 s/p robotic rectosigmoidectomy with post op ileus. Plan: - NPO - CT Abd/pelvis w/ PO/IV contrast - May need NGT replaced. - Replete electrolytes PRN - cont pain management - cont antiemetic and prokinetic - monitor bowel fxn - Encourage OOB to chair/Amb/IS IS - Dressing changes PRN D/W Dr. Casimiro Underwood PGY4
[2018-01-08 08:57] LABS: BASO % 0.9 % (0.0-2.0); EOS % 0.6 % (0.0-4.0); HEMOGLOBIN 11.5 g/dL (12.0-18.0); LYMPH # 0.8 K/uL (1.0-4.3); LYMPH % 16.1 % (20.0-40.0); MEAN CORPUSCULAR HEMOGLOBIN 28.1 pg (27.0-31.0); MEAN CORPUSCULAR HGB CONC 33.8 g/dL (33.0-37.0); MEAN PLATELET VOLUME 7.9 fl (7.2-11.7); MONO # 0.5 K/uL (0.0-0.8); MONO % 10.7 % (0.0-10.0); NEUT # 3.5 K/uL (1.8-7.0); NEUT % 71.7 % (50.0-75.0); RBC 4.08 Mil/uL (4.40-5.90); RED CELL DISTRIBUTION WIDTH 14.6 % (11.5-14.5); WHITE BLOOD COUNT 4.9 K/uL (4.8-10.8)
[2018-01-08 09:06] LABS: BLOOD UREA NITROGEN 13 mg/dl (9-20); CALCIUM 9.1 mg/dL (8.4-10.2); GFR NON-AFRICAN AMERICAN > 60
[2018-01-08] MEDS: ceFAZolin 2 GM in Sodium Chloride 0.9% 100 ML IVPB SCH ×2 (09:40→21:15)
[2018-01-08] MEDS ORDERED: Iohexol 300 100 ML IJ ONE (12:04)
[2018-01-08] MEDS ORDERED: Sodium Chloride 0.9% 50 ML IV ONE (12:05)
[2018-01-08] MEDS: Potassium Chl 20 mEq in D5-NS 1,000 ML IV SCH ×2 (13:03→19:49)
--- NOTE | 2018-01-08 13:18 | CT ---
Date of service: 01/08/2018 PROCEDURE: CT abdomen pelvis dated 01/08/2018 HISTORY: Non resolving post op Ileus vs obstruction status post robotic colectomy. COMPARISON: None. TECHNIQUE: Contiguous axial images of the abdomen and pelvis performed following oral and intravenous injection of approximately 95 cc Omnipaque 300 contrast material. Additional 2D sagittal and coronal reformats generated. Radiation dose: Total exam DLP = 578.45 mGy-cm. This CT exam was performed using one or more of the following dose reduction techniques: Automated exposure control, adjustment of the mA and/or kV according to patient size, and/or use of iterative reconstruction technique. FINDINGS: LOWER THORAX: Heart size is within range of normal. No significant pericardial effusion. There is some minor linear atelectasis and/or scarring seen in the both lung bases left more prominent than the right-side including the lingular and middle lobe regions. No evidence of focal consolidation. No effusion or basilar pneumothorax. LIVER: Liver exhibits normal size. Mild diffuse fatty hepatic infiltration. No obvious hepatic mass collection or calcification. The GALLBLADDER AND BILE DUCTS: Gallbladder physiologically distended. No evidence of intraluminal gallbladder calculi. PANCREAS: The pancreas. Size slightly atrophic and fatty replaced. No obvious pancreatic mass collection or calcification. SPLEEN: Unremarkable. No splenomegaly. ADRENALS: No adrenal lesions KIDNEYS AND URETERS: Kidneys demonstrate symmetric nephrograms. No evidence of nephrolithiasis or hydronephrosis. BLADDER: Urinary bladder is physiologically distended. No evidence of intraluminal urinary bladder calculi REPRODUCTIVE: Prostate gland measures approximately 3.6 cm in transverse dimension. Apparent changes of vasectomy. APPENDIX: Normal appendix. BOWEL: Evaluation of the bowel is somewhat limited due to incomplete opacification. The stomach is distended with oral contrast material and air. Mild dilute contrast material is present within distended proximal jejunum. The mid to distal jejunum is also distended within the more dilute contrast material. Note also made of multiple bubbles of air within the nondependent loops of distended small bowel likely air within the lumen and not felt to represent pneumatosis at this time. . There is a localized apparent transition point estimated at approximately the mid jejunum anteriorly which is best seen on axial image number 89 through 101 involving a loop that borders the posterior aspect anterior abdominal wall with overlying infiltration changes in the subcutaneous tissues likely the incision site. These findings could represent intermittent or partial small bowel obstruction as fluid is present within the distal collapsed loops of small bowel as well as within the colon. There is an anastomosis seen at the level of the sigmoid colon with what also represents a localized area of fluid adjacent to the anastomosis which measures approximately 4.0 x 2.1 x 1.7 cm. PERITONEUM: Mild infiltration changes seen in the mid anterior abdominal wall more so on the left side. No free intraperitoneal air. . LYMPH NODES: Unremarkable. No enlarged lymph nodes. VASCULATURE: Unremarkable. No aortic aneurysm. BONES: Mild multilevel degenerative spondylosis of the lower thoracic and lumbar spine. OTHER FINDINGS: None. IMPRESSION: Postoperative changes of partial colectomy with an anastomosis in the region of the sigmoid colon. There is a small fluid collection adjacent to the anastomotic site as detailed above. Mild dilute contrast material is present within distended proximal jejunum. The mid to distal jejunum is also distended within the more dilute contrast material. Note also made of multiple bubbles of air within the nondependent loops of distended small bowel likely air within the lumen and not felt to represent pneumatosis at this time. . There is a localized apparent transition point estimated at approximately the mid jejunum anteriorly which is best seen on axial image number 89 through 101 involving a loop that borders the posterior aspect anterior abdominal wall with overlying infiltration changes in the subcutaneous tissues likely the incision site. These findings could represent intermittent or partial small bowel obstruction as fluid is present within the distal collapsed loops of small bowel as well as within the colon Mild fatty hepatic infiltration.
[2018-01-08] MEDS: Enoxaparin 40 mg Syringe SC SCH (13:57)
[2018-01-08 16:36] VITALS: O2SAT 98
[2018-01-09] MEDS: Potassium Chl 20 mEq in D5-NS 1,000 ML IV SCH ×2 (00:30→03:00)
[2018-01-09] MEDS: Levothyroxine 75 MCG TAB PO SCH (06:56)
--- NOTE | 2018-01-09 08:19 | CP.PCM.PN ---
Subjective - Date & Time of Evaluation Date of Evaluation: 01/09/18 Time of Evaluation: 06:55 - Subjective Subjective: General Surgery Pt seen and examined. 13 BMs since yesterday. NAEO. Feels much better today Denies F/C, N/V. Tolerating liquids. Objective - Vital Signs/Intake and Output Vital Signs (last 24 hours): Temp Pulse Resp BP Pulse Ox 97.6 F 63 18 118/72 98 01/09/18 00:32 01/09/18 00:32 01/09/18 00:32 01/09/18 00:32 01/09/18 00:32 - Medications Medications: Current Medications Acetaminophen (Tylenol 325mg Tab) 975 mg PO Q8 [facility] Last Admin: 01/09/18 00:55 Dose: Not Given Hydromorphone HCl (Dilaudid) 0.25 mg IVP Q4 PRN PRN Reason: Pain, moderate (4-7) Last Admin: 01/08/18 22:43 Dose: 0.25 mg Cefazolin Sodium 2 gm/ Sodium (Chloride) 100 mls @ 100 mls/hr IVPB Q12 [facility] PRN Reason: Protocol Last Admin: 01/08/18 21:15 Dose: 100 mls/hr Potassium Chloride/Dextrose/Sod Cl (Potassium Chl 20 Meq In D5-Ns) 1,000 mls @ 125 mls/hr IV .Q8H [facility] Stop: 01/09/18 10:39 Last Admin: 01/09/18 03:00 Dose: Not Given Ibuprofen (Motrin Tab) 600 mg PO Q6 PRN PRN Reason: Pain, moderate (4-7) Last Admin: 01/03/18 20:57 Dose: 600 mg Levothyroxine Sodium (Synthroid) 75 mcg PO DAILY@0630 [facility] Last Admin: 01/09/18 06:56 Dose: 75 mcg Metoclopramide HCl (Reglan) 10 mg IVP Q8 [facility] Last Admin: 01/09/18 00:54 Dose: 10 mg Ondansetron HCl (Zofran Inj) 4 mg IVP Q4 PRN PRN Reason: Nausea/Vomiting Last Admin: 01/08/18 11:19 Dose: 4 mg Pantoprazole Sodium (Protonix Inj) 40 mg IVP DAILY [facility] Last Admin: 01/08/18 09:42 Dose: 40 mg - Labs Labs: 01/08/18 08:15 01/08/18 08:15 - Constitutional Appears: Non-toxic, No Acute Distress - Head Exam Head Exam: ATRAUMATIC, NORMOCEPHALIC - Eye Exam Eye Exam: EOMI. absent: Scleral icterus - Respiratory Exam Respiratory Exam: NORMAL BREATHING PATTERN. absent: Respiratory Distress - Cardiovascular Exam Cardiovascular Exam: RRR, +S1, +S2 - GI/Abdominal Exam GI & Abdominal Exam: Soft. absent: Distended, Firm, Guarding, Rigid, Tenderness , Rebound Additional comments: umbilical incision with scant drainage from L edge port incisions C/D/I - Neurological Exam Neurological Exam: Alert, Awake, Oriented x3 - Skin Skin Exam: Dry, Warm Assessment and Plan - Assessment and Plan (Free Text) Assessment: 52M w/ colon CA POD#9 s/p robotic rectosigmoidectomy now with improved post op ileus. Plan: - Advance to soft diet, monitor for tolerance - Replete electrolytes PRN - cont pain management PRN - cont antiemetic and prokinetic - monitor bowel fxn - Dressing changes daily D/W Dr. Casimior Underwood PGY4
[2018-01-09 08:58] VITALS: BP 147/81; PULSE 71; RESP 20; TEMP 98.6
[2018-01-09 09:16] LABS: BLOOD UREA NITROGEN 10 mg/dl (9-20); CALCIUM 8.8 mg/dL (8.4-10.2); GFR NON-AFRICAN AMERICAN > 60
[2018-01-09] MEDS: ceFAZolin 2 GM in Sodium Chloride 0.9% 100 ML IVPB SCH (09:35)
--- NOTE | 2018-01-09 13:07 | CP.PCM.DIS ---
Provider - Provider Date of Admission: 12/30/17 12:09 Attending physician: Jorge L Kirkpatrick MD Primary care physician: Laar Tay MD Time Spent in preparation of Discharge (in minutes): 10 Diagnosis - Discharge Diagnosis (1) Colon cancer Status: Acute Hospital Course - Lab Results Lab Results: Most Recent Lab Values WBC 4.9 K/uL (4.8-10.8) 01/08/18 08:15 RBC 4.08 Mil/uL (4.40-5.90) L 01/08/18 08:15 Hgb 11.5 g/dL (12.0-18.0) L 01/08/18 08:15 Hct 33.9 % (35.0-51.0) L 01/08/18 08:15 MCV 83.0 fl (80.0-94.0) 01/08/18 08:15 MCH 28.1 pg (27.0-31.0) 01/08/18 08:15 MCHC 33.8 g/dL (33.0-37.0) 01/08/18 08:15 RDW 14.6 % (11.5-14.5) H 01/08/18 08:15 Plt Count 334 K/uL (130-400) 01/08/18 08:15 MPV 7.9 fl (7.2-11.7) 01/08/18 08:15 Neut % (Auto) 71.7 % (50.0-75.0) 01/08/18 08:15 Lymph % (Auto) 16.1 % (20.0-40.0) L 01/08/18 08:15 Otero % (Auto) 10.7 % (0.0-10.0) H 01/08/18 08:15 Eos % (Auto) 0.6 % (0.0-4.0) 01/08/18 08:15 Baso % (Auto) 0.9 % (0.0-2.0) 01/08/18 08:15 Neut # (Auto) 3.5 K/uL (1.8-7.0) 01/08/18 08:15 Lymph # (Auto) 0.8 K/uL (1.0-4.3) L 01/08/18 08:15 Otero # (Auto) 0.5 K/uL (0.0-0.8) 01/08/18 08:15 Eos # (Auto) 0.0 K/uL (0.0-0.7) 01/08/18 08:15 Baso # (Auto) 0.0 K/uL (0.0-0.2) 01/08/18 08:15 Sodium 136 mmol/l (132-148) 01/09/18 08:40 Potassium 3.9 MMOL/L (3.6-5.0) 01/09/18 08:40 Chloride 101 mmol/L (98-107) 01/09/18 08:40 Carbon Dioxide 28 mmol/L (22-30) 01/09/18 08:40 Anion Gap 11 (10-20) 01/09/18 08:40 BUN 10 mg/dl (9-20) 01/09/18 08:40 Creatinine 0.8 mg/dl (0.8-1.5) 01/09/18 08:40 Est GFR ( Amer) > 60 01/09/18 08:40 Est GFR (Non-Af Amer) > 60 01/09/18 08:40 Random Glucose 100 mg/dL (75-110) 01/09/18 08:40 Calcium 8.8 mg/dL (8.4-10.2) 01/09/18 08:40 Phosphorus 4.6 mg/dl (2.5-4.5) H 01/08/18 08:15 Magnesium 2.0 MG/DL (1.6-2.3) 01/08/18 08:15 Total Bilirubin 0.7 mg/dl (0.2-1.3) 12/31/17 05:22 AST 31 U/L (17-59) 12/31/17 05:22 ALT 25 U/L (21-72) 12/31/17 05:22 Alkaline Phosphatase 61 U/L (38-126) 12/31/17 05:22 Total Protein 7.0 G/DL (6.3-8.2) 12/31/17 05:22 Albumin 3.8 g/dL (3.5-5.0) 12/31/17 05:22 Globulin 3.2 gm/dL (2.2-3.9) 12/31/17 05:22 Albumin/Globulin Ratio 1.2 (1.0-2.1) 12/31/17 05:22 TSH 3rd Generation 1.69 mIU/ML (0.46-4.68) 01/05/18 08:29 Blood Type O NEGATIVE 12/30/17 06:20 Blood Type Confirm O NEGATIVE 12/30/17 08:05 Antibody Screen Negative 12/30/17 06:20 Crossmatch See Detail 12/30/17 06:20 BBK History Checked No verified bt 12/30/17 06:20 - Hospital Course Hospital Course: 52yo M admitted to the hospital s/p Robotic Colectomy for Adenocarcinoma of the Colon. Surgery went well without complications, however pt. developed a prolonged ileus post-op. He was able to tolerate a liquid diet on POD #8, and began to have bowel function. He continued to progress well and by POD #10 pt was tolerating a soft diet, ambulating in the halls, pain was well controlled with no pain medications, and he had good bowel function. He was stable to discharge home with post-op followup in 1 week. Discharge Exam - Head Exam Head Exam: ATRAUMATIC, NORMOCEPHALIC - Eye Exam Eye Exam: Normal appearance - Respiratory Exam Respiratory Exam: Clear to PA & Lateral, NORMAL BREATHING PATTERN - Cardiovascular Exam Cardiovascular Exam: REGULAR RHYTHM - GI/Abdominal Exam GI & Abdominal Exam: Soft. absent: Distended, Guarding, Rebound, Tenderness - Neurological Exam Neurological exam: Alert, Oriented x3 - Psychiatric Exam Psychiatric exam: Normal Affect, Normal Mood - Skin Skin Exam: Dry, Intact Discharge Plan - Follow Up Plan Condition: GOOD Disposition: HOME/ ROUTINE Additional Instructions: Resume a low fiber/soft diet. You may remove abdominal dressing and packing tomorrow, replace with dry clean 4x4 gauze dressing. You may shower and allow soap/water to run over the incisions. No Scrubbing incisions or Soaking/Bathing/Swimming. Continue light activities such as walking. No heavy lifting >10lbs for 4weeks. Take Tylenol as needed for pain. If stool becomes hard or constipation occurs, take stool softeners such as Miralax. Make an appointment to see Dr. Kirkpatrick in office in 1 week. Referrals: Lara Tay MD [Primary Care Provider] - Jorge L Kirkpatrick MD [Medical Doctor] -
== END 2018-01-09 15:00 | disposition home or self-care (01) | DRG 330 ==
LOC: H.OPSURG 06:06 → H.TEL 12:09 → H.MEDSURG1 01-02 12:20
PROVIDERS: ADMIT Surgery; ATTEND Surgery
PROC: 0DJD8ZZ Inspection of Lower Intestinal Tract, Via Natural or Artificial Opening Endoscopic (ICD-10-PCS; 2017-12-30)
PROC: 8E0W4CZ Robotic Assisted Procedure of Trunk Region, Percutaneous Endoscopic Approach (ICD-10-PCS; 2017-12-30)
PROC: 0TJB8ZZ Inspection of Bladder, Via Natural or Artificial Opening Endoscopic (ICD-10-PCS; 2017-12-30)
PROC: BT141ZZ Fluoroscopy of Kidneys, Ureters and Bladder using Low Osmolar Contrast (ICD-10-PCS; 2017-12-30)
PROC: BT141ZZ Fluoroscopy of Kidneys, Ureters and Bladder using Low Osmolar Contrast (ICD-10-PCS; principal; 2017-12-30 07:45)
PROC: 0DTN4ZZ Resection of Sigmoid Colon, Percutaneous Endoscopic Approach (ICD-10-PCS; 2017-12-30 07:45)
DX: C20 Malignant neoplasm of rectum (principal); K56.7 Ileus, unspecified; R31.0 Gross hematuria; M54.9 Dorsalgia, unspecified